=== PATIENT | male | born 1995 | race African-American/Black ===

== ENCOUNTER 2017-07-03 15:57 | Emergency (ER) | payer OTHER ==
[~2017-07-03] VITALS: Ht 188 cm; Wt 59.0 kg
[2017-07-03 16:00] VITALS: BP 114/58
== END 2017-07-03 16:41 | disposition home or self-care (01) ==
LOC: M.ERS 15:57
DX: S01.331A Puncture wound without foreign body of right ear, initial encounter (principal); J45.909 Unspecified asthma, uncomplicated; W49.04XA Ring or other jewelry causing external constriction, initial encounter; Y93.89 Activity, other specified; Y92.89 Other specified places as the place of occurrence of the external cause; Y99.8 Other external cause status